=== PATIENT | female | born 1990 | race Caucasian/White ===

== ENCOUNTER 2022-01-28 07:51 | Outpatient (CLI) | payer OTHER, SELFPAY ==
--- OUTSIDE RECORDS SUMMARY | 2022-01-28 07:54 | XMS_ITS | Continuity of Care Document ---
:1990 Author Organization [facility] Care Team Providers Name Role Phone [facility] Unavailable Unavailable Problems Combined list of problems from [facility] Defense and [facility] facilities. It does not include entries that were removed or entered in error. Problem Status Onset Date Problem Type Date of Comments Source Resolution conditions Active 05/21/2013 Condition [facility] influencing health status Allergies, Adverse Reactions, Alerts Combined list of allergies from Department of Defense and Veterans Affairs facilities. It does not include entries that were removed or entered in error. Substance Category Reaction Severity Reaction Status Date Comments S ource type Reported No Known Drug Drug active 08/05/2011 WBAM C Allergies allergy allergy [place] Social History Combined list of available smoking, tobacco, and other social history from [facility] and[facility] Affairs facilities. Social History Type Response Date Comment Source This section is an empty social history section. DoD
--- OUTSIDE RECORDS SUMMARY | 2022-01-28 07:54 | XMS_ITS | Clinical Summary ---
:1990 Author Organization [facility] Address [address] [place] [address] Care Team Providers Name Role Phone No Primary/Referring, Tiarra Primary Care Provider Unavailable Source Comments You are receiving this document as you are listed as the primary care provider,follow-up provider, or the patient has been referred to you for consultation.This is in compliance with the Medicare and Medicaid EHR Incentive Program,which states Providers who transition their patient to another setting of careor provider of care or refers their patient to another provider of care shouldprovide summarycare record for each transition of care or referral. [facility] Allergies No known active allergies Medications Medication Sig Dispensed Refills Start Date End Date Status omeprazole (PRILOSEC) 20 Take 1 Cap by 30 Cap 2 11/25/2015 Active MG capsuleIndications: mouth daily Gastroesophageal reflux before disease, esophagitis breakfast. Take presence not specified 1 hour before a meal. Active Problems Problem Noted Date Cough 11/25/2015 Family History Medical History Relation Name Comments No Known Problems Father Thyroid Disorder Mother Anxiety Brother 1 Elliot No Known Problems Brother 2 Reggie No Known Problems Brother 3 Luis Enrique Anxiety Brother 4 Masood Relation Name Status Comments Father Mother Brother 1 Elliot Brother 2 Reggie Brother 3 Luis Enrique Brother 4 Masood Social History Tobacco Use Types Packs/Day Years Used Date Smoking Tobacco: Never Smokeless Tobacco: Never Alcohol Use Standard Drinks/Week Comments No 0 (1 standard drink = 0.6 oz pure Abstai ns completely from alcohol alcohol) Sex Assigned at Date Recorded Not on file Last Filed Vital Signs Vital Sign Reading Time Taken Comments Blood Pressure 112/82 11/25/2015 3:06 PM CDT Pulse 76 11/25/2015 3:06 PM CDT Temperature - - Respiratory Rate 12 11/25/2015 3:06 PM CDT Oxygen Saturation 96% 11/25/2015 3:06 PM CDT Inhaled Oxygen Concentration - - Weight 100.2 kg (220 lb 12.8 oz) 11/25/2015 3:06 PM CDT Height 165.1 cm (5' 5) 11/25/2015 3:06 PM CDT Body Mass Index 36.74 11/25/2015 3:06 PM CDT Plan of Treatment Health Maintenance Due Date Last Done Comments Cervical Cancer Screening Due 1990 Hep C Screening (Preventive 1988 Services) HepB (1) 1990 COVID-19 Vaccine (#1) 04/12/1989 HIV Screening (Preventive 2004 Services) Adult Preventive Visit 2006 DTaP/Tdap/Td (1 - Tdap) 10/11/2007 Influenza (#1) 2021 Zoster/Shingles (1 of 2) 2038 HPV Vaccine Aged Out No longer eligib le based on patient's age to complete this topic HepA Aged Out No longer eligib le based on patient's age to complete this topic Hib Aged Out No longer eligib le based on patient's age to complete this topic IPV (Polio) Aged Out No longer eligib le based on patient's age to complete this topic MCV4 Aged Out No longer eligib le based on patient's age to complete this topic Pneumococcal Aged Out No longer eligib le based on patient's age to complete this topic Insurance Payer Benefit Plan / Subscriber ID Effective Dates Phone Addre ss Type Group [place] [id number] 2017-Present [facility] Government [employer] [address] [place] [address] Care Teams Biochemist Relationship Specialty Start Date End Date No Primary/Referring, Phy PCP - General 11/25/15
--- OUTSIDE RECORDS SUMMARY | 2022-01-28 07:54 | XMS_ITS | Encounter Summary ---
:1990 [facility] Address [address] [place] [address] Care Team Providers Name Role Phone No Primary/Referring, Phy Primary Care Provider Unavailable Reason for Visit Reason Comments COUGH SOB, Wheezing when laying in bed. Encounter Details Date Type Department Care Team Description 11/25/2015 Office Visit [facility] Mariann Gillis [facility] roesophageal reflux Practice [employer], DNP disease, esophagitis [address] presence not specified [place], [place] (Primary Dx) [id number] [phone] Social History Tobacco Use Types Packs/Day Years Used Date Smoking Tobacco: Never Smokeless Tobacco: Never Alcohol Use Standard Drinks/Week Comments No 0 (1 standard drink = 0.6 oz pure Abstai ns completely from alcohol alcohol) Sex Assigned at Date Recorded Not on file documented as of this encounter Last Filed Vital Signs Vital Sign Reading [...] Mass Index 36.74 11/25/2015 3:06 PM CDT documented in this encounter Patient Instructions Patient InstructionsMariann Gillis APRN, CNP - 11/25/2015 3:34 PM CDT Images from the original note were not included. It was a pleasure seeing you in clinic today. I hope I was able to address your health care concerns to your satisfaction. If you have any further questions or concerns, please contact me by email through the [employer] website, [email or web address], or by calling the clinic at [phone]. Here is an outline of what we discussed today and your Plan of Care: ?? Start taking the omeprazole once a day. Take the medication before breakfast. Mariann Gillis APRN, [facility] [address] [place] [address] Gastroesophageal Reflux Disease (GERD): Care Instructions Your Care Instructions Gastroesophageal reflux disease (GERD) is the backward flow of stomach acid into the esophagus. The esophagus is the tube that leads from your throat to your stomach. A one-way valve prevents the stomach acid from moving up into this tube. When you have GERD, this valve does not close tightly enough. If you have mild GERD symptoms including heartburn, you may be able to control the problem with antacids or gmrn-rkl-botmprt medicine. Changing your diet, losing weight, and making other lifestyle changes can also help reduce symptoms. Follow-up care is a murrell part of your treatment and safety. Be sure to make and go to all appointments, and call your doctor if you are having problems. It???s also a good idea to know your test resultsand keep a list of the medicines you take. How can you care for yourself at home? ?? Take your medicines exactly as prescribed. Call your doctor if you think you are having a problemwith your medicine. ?? Your doctor may recommend zmvn-lyv-twgeusu medicine. For mild or occasional indigestion, antacids, such as Tums, Gaviscon, Mylanta, or Maalox, may help. Your doctor also may recommend cfor-fvy-ybimsid acid reducers, such as Pepcid AC, Tagamet HB, Zantac 75, or Prilosec. Read and follow all instructions on the label. If you use these medicines often, talk with your doctor. ?? Change your eating habits. ?? It???s best to eat several small meals instead of two or three large meals. ?? After you eat, wait 2 to 3 hours before you lie down. ?? Chocolate, mint, and alcohol can make GERD worse. ?? Spicy foods, foods that have a lot of acid (like tomatoes and oranges), and coffee can make GERD symptoms worse in some people. If your symptoms are worse after you eat a certain food, you may want to stop eating that food to see if your symptoms get better. ?? Do not smoke or chew tobacco. Smoking can make GERD worse. If you need help quitting, talk to your doctor about stop-smoking programs and medicines. These can increase your chances of quitting for good. ?? If you have GERD symptoms at night, raise the head of your bed 6 to 8 inches by putting the frameon blocks or placing a foam wedge under the head of your mattress. (Adding extra pillows does not work.) ?? Do not wear tight clothing around your middle. ?? Lose weight if you need to. Losing just 5 to 10 pounds can help. When should you call for help? Call your doctor now or seek immediate medical care if: ?? You have new or different belly pain. ?? Your stools are black and tarlike or have streaks of blood. Watch closely for changes in your health, and be sure to contact your doctor if: ?? Your symptoms have not improved after 2 days. ?? Food seems to catch in your throat or chest. Where can you learn more? 1. Go to [employer] or [employer]. 2. Enter T927 in the search box. Current as of: January 09, 2015 Content Version: 109 ?? [id number] [employer]. documented in this encounter Progress Notes Mariann Gillis APRN, CNP - 11/25/2015 3:10 PM CDT HPI: Linda Lomax is a 25 y.o. old female who presents today with a chief complaint of COUGH ?? Coughing attacks - occur mostly in the evening and after being asleep for a few hours ?? Has coughed to the point of emesis; no hemoptysis ?? Also finds herself clearing her throat multiple times during the day ?? Duration: about 3 weeks ?? Symptoms worse after ingesting dairy and when lying down ?? Some heartburn ?? Hoarse voice after coughing attack ?? Interventions: guaifenesin and ibuprofen with no response ?? Non-smoker; no asthma history ROS: Review of Systems CONSTITUTIONAL: No fever, chills EYES: no redness, irritation, or discharge ENT: no abnormally frequent URIs, no decrease in hearing, no epistaxis, no persistently sore throat,no sinus problems, no tinnitus, no vertigo RESPIRATORY: no shortness of breath, no sputum, no hemoptysis, no wheezing CARDIOVASCULAR: no irregular heart beats, no chest pain GASTROINTESTINAL: normal appetite, no dysphagia, no nausea, no abdominal pain HEMATOLOGIC/LYMPHATIC/IMMUNOLOGIC: no weight loss, no swollen lymph nodes Problem List: Patient Active Problem List Diagnosis ??? Cough Social History: Social History Substance Use Topics ??? Smoking status: Never Smoker ??? Smokeless tobacco: Never Used ??? Alcohol Use: No Comment: Abstains completely from alcohol Allergies: No Known Allergies Current Medications: No outpatient prescriptions prior to visit. No facility-administered medications prior to visit. Physical Exam: BP 112/82 mmHg Pulse 76 Resp 12 Ht 5' 5 (1.651 m) Wt 220 lb 12.8 oz (100.154 kg) BMI 36.74 kg/m2 SpO2 96% LMP 11/25/2015 (Exact Date) General: alert, oriented to person, place, time Head: atraumatic Eyes: PERRL and conjunctivae clear Ears: pearly nguyễn bilateral TMs and non-inflamed external ear canals Nose: no rhinorrhea/nasal discharge and no sinus tenderness Mouth/Throat: no exudates and mild erythema in throat Neck: no tenderness, supple and full AROM Chest/Pulmonary: chest clear with equal lung sounds bilaterally Cardiovascular: S1, S2 normal and regular rate and rhythm Abdomen: soft, non-tender and no guarding Musculoskel/Extremities: normal extremities, no edema, erythema, tenderness and full AROM of major joints without tenderness Psychiatric: affect/mood normal, cooperative and normal judgement/insight Assessment/Plan: ICD-10-CM 1. Gastroesophageal reflux disease, esophagitis presence not specified K21.9 omeprazole (PRILOSEC) 20 MG capsule Discussed presenting concerns, interventions to date, exam findings, and recommended treatment. Alsoreviewed weight loss, elevating head of bed. Return to clinic in ~4 weeks for recheck. Instructions given to patient in the After Visit Summary. The patient indicates understanding of these issues and agrees with the plan. Health Maintenance: Reviewed outstanding Health Maintenance. Plans to rtc to complete. Plan of Care developed in conjunction with patient. Patient agrees with and verbalizes understandingof plan. Mariann Gillis APRN, PERSONNEL MANAGER-C 11/25/2015 4:05 PM documented in this encounter Plan of Treatment Not on filedocumented as of this encounter Visit Diagnoses Diagnosis Gastroesophageal reflux disease, esophag itis presence not specified - Primary documented in this encounter Care Teams Gear Room Keeper Relationship Specialty Start Date End Date No Primary/Referring, Phy PCP - General 11/25/15 documented as of this encounter
== END 2022-01-28 07:52 | disposition home or self-care (01) ==
PROVIDERS: PCP Physician Assistant Medical; Visit Provider Physician Assistant Medical
DX: Z82.49 Family history of ischemic heart disease and other diseases of the circulatory system (principal)
CPT/HCPCS: 76706; 93306

== ENCOUNTER 2024-05-03 09:26 | Outpatient (CLI) | payer OTHER, SELFPAY | END 2024-05-03 09:27 | disposition home or self-care (01) | LOC: NFLDREF 05-06 01:57 | PROVIDERS: Visit Provider Nurse Practitioner Family | DX: R55 Syncope and collapse (principal); Z13.6 Encounter for screening for cardiovascular disorders | CPT/HCPCS: 80053; 80061 ==